=== PATIENT | male | born 1965 | race Hispanic/Latino ===

== ENCOUNTER 2016-03-29 19:54 | Emergency (ER) | payer SELFPAY ==
[~2016-03-29] VITALS: Ht 175.3 cm; Wt 81.8 kg
[2016-03-29 19:58] VITALS: BP 126/72; PULSE 75; RESP 20; O2SAT 98
--- NOTE | 2016-03-29 20:22 | ED.REPORT ---
HPI-Rash / Abscess Date of Service Mar 29, 2016 ED Provider: Boom Taveras MD Patient is a 50-year-old male who presents to the ED complaining of an area of swelling on the left neck which began 3 days ago. Patient reports mild pain on the lump, which has grown larger every day since onset. He denies any fever and also has several small abscesses on his scalp which have been present for a few weeks. He was on antibiotics about a month ago. 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 Arrived By: Walk-in Onset Occurred: 3 days ago Symptom Duration: Since onset Location: : Neck Severity: Current: Mild Recent Healthcare: No recent doctor visit, No recent hospitalization Similar Sx Previous: No Past Medical History Past Medical History borderline diabetic Past Surgical History childhood hernia repair Smoking History Never Smoker Social History Alcohol Use: Denies alcohol use Ambulatory Status Independent Review of Systems Constitutional: Denies: Fever Skin: Reports Rash (eczema bilateral elbows, small abscesses on scalp), Reports Swelling (left neck lump) Complete sys rev & neg: except as marked. Physical Exam Initial Vital Signs Vital Signs (First) Date Time Temp Pulse Resp B/P Pulse Ox O2 Delivery O2 Flow Rate FiO2 03/29/16 19:58 37.1 75 20 126/72 98 Initial VS: Reviewed, Vital signs normal Cardiovascular: Regular rate & rhythm, Heart sounds normal, Intact distal pulses Abdomen / GI: Soft, Non-tender, No guarding, No rebound, No distention Back: No CVA tenderness Extremities: Vascular intact, Neuro intact, No swelling, No tenderness Neurologic: Alert, Oriented, Nonfocal Psychiatric: Mood/affect normal, Behavior normal, Normal thought content General/Constitutional: Awake, Alert, No acute distress, Well appearing, Well developed, Cooperative, Not toxic appearing Color / Condition: Positive: Lesion present... small abscess that self drained and resolved no clinical signs of cellulitis large 3 cm erythematous, swollen, indurated tissue in the left neck that is possibly a lymph node ENT: Atraumatic, Airway patent, Mucous membranes moist, Pharynx NL no intraoral abnormalities Respiratory / Chest: Atraumatic, Breath sounds NL, Breath sounds = bilat, No respiratory distress, No rales, No rhonchi, No wheezing no airway abnormalities Interpretation & Diagnostics Lab Results Interpretation Result Diagram: 03/29/16203903/29/162039 Test 03/29/16 20:40 White Blood Count 11.2th/mm3 (3.8-10.1) Red Blood Count 5.16mil/mm3 (4.40-5.80) Hemoglobin 15.2g/dL (13.8-17.2) Hematocrit 42.8% (41.0-50.0) Mean Corpuscular Volume 82.9fL (81-100) Mean Corpuscular Hemoglobin 29.5pg (27.0-35.0) Mean Corpuscular Hemoglobin Concent 35.5% (32.0-37.0) Red Cell Distribution Width 13.2% (12.3-15.4) Platelet Count 265bil/L (150-400) Neutrophils (%) (Auto) 66.2% (40-74) Lymphocytes (%) (Auto) 21.2% (14-46) Monocytes (%) (Auto) 8.2% (4-12) Eosinophils (%) (Auto) 3.7% (0-5) Basophils (%) (Auto) 0.5% (0-3) Sodium Level 135mEq/L (134-144) Potassium Level 3.7mEq/L (3.5-5.2) Chloride Level 96mEq/L (97-108) Carbon Dioxide Level 26mmol/L (18-29) Blood Urea Nitrogen 14mg/dL (6-24) Creatinine 0.84mg/dL (0.76-1.27) Estimat Glomerular Filtration Rate 102mL/min (>59) Glucose Level 149mg/dL (60-99) Calcium Level 9.0mg/dL (8.5-10.1) Total Bilirubin 0.4mg/dL (0.0-1.2) Aspartate Amino Transf (AST/SGOT) 18U/L (0-50) Alanine Aminotransferase (ALT/SGPT) 19U/L (0-44) Alkaline Phosphatase 101U/L (25-150) Total Protein 7.4g/dL (6.4-8.4) Albumin 4.0g/dL (3.4-5.0) Lab Results Interpretation: CBC mild leukocytosis CMP normal Re-Eval/Medical Decision Med Decision/Clinical Course This is a 50-year-old [place]-speaking male presents to the murmurs or swelling of 4 days increasing swelling redness and pain on the left side of his neck. Denies fevers chills, he denies rash or injury elsewhere, has no prior history of MRSA. He is afebrile and nontoxic. However on exam he has got a couple of areas of alopecia with had recent stress scalp process, including what looks to be a previously and spontaneously drained small cutaneous abscess on the left posterior scalp line. There are no current signs of infection, but this would be an area that is likely drained to the posterior lymph chain. On exam of the neck there is a markedly swollen approximate 4 x 4 centimeter indurated area that he is in the direct line of the posterior cervical chain, and I do not appreciate dorene fluctuance that would be strongly suggestive cutaneous abscess, but there is some surrounding erythema of early cellulitis. There is no airway compromise. Patient's oropharyngeal exam appears normal with no pathology identified. There is no evidence of Harley's angina or anterior/submandibular involvement. Rest of the patient's exam is normal. Blood work reveals mild leukocytosis, CT indicates a probable lymphadenitis/ inflammatory process with no discrete abscess. The radiologist also recommends ENT follow-up, and potential repeat evaluation. The patient received IV clindamycin cover staph strep and MRSA as most likely etiologies for cervical adenitis in the setting of a scalp wound. The culture at present. He also received IV dexamethasone. He is being discharged on a course of oral clindamycin, oral dexamethasone, when necessary hydrocodone, and a probiotic. A referal for follow up with ENT provided. Return precautions reviewed. Source of Hx: Old records Re-Evaluation/Progress : Time of Eval: 22:18 Patient Status: Mild relief Re-Evaluation/Progress Note: Pt rechecked. Informed pt of diagnosis of cervical lymphadentitis and plan for treatment. Pt understands and agrees with plan. F/U and RTER warnings given. All questions addressed. Differential Diagnosis: Negative: Abscess, Anorectal abscess, Bartholin's abscess, Gangrene, Henoch-Schonlein purpura, Herpes zoster, Osteomyelitis, [place] mt spotted fever Counseled Regarding: Diagnosis, Lab results, Need for follow-up, When/why to return to ED Discharge & Departure Impression: Primary Impression: Cervical lymphadenitis Disposition: Home Discharge Condition All VS Reviewed: Yes Condition: Stable Additional Instructions: 1. No abscess was appreciated on CT scan - it does appear to be an infected lymph gland. 2. Take the antibiotic clindamycin 300mg FOUR times a day for 10 days. Take all 10 days of antibiotics. 3. Take dexamethasone 10mg (1/2 of syringe - empty into some juice - and drink ) tomorrow. Take the remaining 10mg (remaining 1/2 of syringe) on Friday. This medication also helps reduce the swelling. 4. If needed for pain take hydrocodone/APAP 5/325 1 tab up to every 4-6 horus for pain. NOTE: This medication contains a narcotic and causes drowsiness. No driving for at least 4-6 hours after taking. 5. It usually takes 1-2 days antibiotics before symptoms start to improve, and it will likely take a week or 2 before the swelling fully resolves. 6. Do recommend that she follow up with the ear nose and throat physician for recheck in about [address] Desai's office tomorrow to schedule an appointment. 7. If you need a primary care physician, follow-up with Dr. Cordero. 8. I do recommend taking a "pro-biotic" as well for another 10 days after finishing the antibiotics. This is to help replace the healthy bacteria in the intestines that are accidentally removed by the antibiotic. 1. no hay absceso se apreci en la exploracin del CT - parece ser un ganglio linftico infectado. 2. craig el antibitica clindamicina 300mg cuatro veces al da nathan 10 vázquez. Craig todos los 10 vázquez de antibiticos. 3. Urania dexametasona 10mg (1/2 jeringa - vaco en algunos jugo - y la bebida) ma samy. Urania la restantes 10mg (1/2 jeringa restante) el deonte. Halima medicamento tambin ayuda a reducir la hinchazn. 4. Si es necesario para la lengeta de hydrocodone/APAP 5/325 1 dolor craig hasta cada 4-6 horus para el dolor. Nota: Halima medicamento contiene un narc maria del carmen y causa somnolencia. No se puede conducir nathan al menos 4-6 horas despu s de craig. 5. tarda generalmente antibiticos 1-2 vázquez antes de que los sntomas comienzan a mejorar, y es probable que tardar cheri semana o 2 antes de que la inflamacin se resuelve completamente. 6. recomienda que siga con el mdico de odo nariz y garganta para revisin en 2 semanas. Llamar a Oficina de Dr. Lloyd new para programar cheri sidra. 7. Si usted necesita a un mdico de atencin primaria, seguimiento con el Dr. Cordero. 8. recomiendo craig un "pro-biotic" as fiorella para otros 10 vázquez despus de terminar los antibiticos. [place] es para ayudar a reemplazar las bacterias sanas en los intestinos que se eliminan accidentalmente por el antibitico. Scribe Attestation Portion of this note were transcribed by Jayme Wright. I, Dr. Taveras, personally performed the history, physical exam, and medical decision-making: I reviewed and confirmed the accuracy for the information in the transcribed note. Signed by: jus Mason, 03/29/16 [id number] Boom Taveras MD Mar 29, 2016 20:22 JAYME WRIGHT Mar 29, 2016 20:35
[2016-03-29] MEDS ORDERED: Clindamycin Inj 900 MG in IV Premix 1 EACH IV ONE (20:40)
[2016-03-29] MEDS ORDERED: Dexamethasone 10 mg/mL Inj IVPUSH ONE (20:40)
[2016-03-29 20:50] LABS: BASOPHILS % (AUTO) 0.5 % (0-3); EOSINOPHILS % (AUTO) 3.7 % (0-5); MONOCYTES % (AUTO) 8.2 % (4-12); Mean Corpuscular Hemoglobin 29.5 pg (27.0-35.0); Mean Corpuscular Volume 82.9 fL (81-100); NEUTROPHILS % (AUTO) 66.2 % (40-74); Platelet Count 265 bil/L (150-400)
[2016-03-29] MEDS ORDERED: _HYDROcodone/APAP 5-325 mg Tablet PO PRN (21:20)
[2016-03-29] MEDS ORDERED: _Clindamycin 150 mg Capsule PO SCH (21:30)
--- NOTE | 2016-03-29 21:49 | DRSVH ---
PROCEDURE: CT NECK SOFT TISSUES WITH CONTRAST ([id number]) INDICATIONS: L neck mass TECHNIQUE: After the administration of intravenous contrast, 3.0 mm axial sections acquired from the sella to th e aortic arch. Additional oblique axial 3.0 mm sections acquired through the pharynx. 3 mm thick co ambrose reformats were generated. For radiation dose reduction, the following was used: automated exp osure control. A fiducial marker was placed over the left neck mass. COMPARISON: None. FINDINGS: Image quality: Excellent. Lymph nodes: There are multiple mildly prominent bilateral level II and level III cervical lymph node s, measuring less than 10 mm short axis. Vessels: Visualized vasculature appears patent. Neck spaces: The nasopharynx is within normal limits. There is multifocal nodular thickening of the right and left aspects of the tongue base, with multiple regions of nodular thickening ranging in siz e from 5 mm-13 mm protruding into the vallecula. There is suboptimal visualization of the more superi or aspect of the oropharynx, which is effaced. The vocal cords, false vocal cords, pyriform sinuses, and epiglottis are within normal limits. Within the left upper neck, at the posterior and medial aspe ct of the superior left sternocleidomastoid muscle, there is an ill-defined region of severe fat stra nding, spanning roughly 32 mm. This is in the region of the clavicle abnormality as denoted by the fi ducial marker. Glands: The parotid and submandibular glands appear normal. Thyroid gland is within normal limits. Miscellaneous: Visualized brain and orbits appear normal. Lung apices appear clear. Superficial so ft tissues appear normal. Bones: No suspicious bony lesions. Left maxillary sinus retention cyst is present. IMPRESSION: 1. Focal inflammatory versus infectious process within the left superior neck as described above. Mul tiple reactive cervical lymph nodes. No loculated fluid collection to indicate abscess. 2. Nodular thickening of the tongue base; direct visualization is recommended. 3. Followup imaging is recommended to exclude the less likely possibility of underlying neoplasm. Dictated by: Alicja Max M.D. on 03/29/2016 at 21:42 Approved by: Alicja Max M.D. on 03/29/2016 at 21:47
[2016-03-29] MEDS ORDERED: Dexamethasone 20 mg/2 mL Oral Solution PO ONE (22:05)
[2016-03-29] MEDS ORDERED: LACT1CAP65 PO (22:12)
[2016-03-29 23:52] VITALS: BP 126/72; PULSE 75; RESP 20; O2SAT 98
== END 2016-03-29 23:53 | disposition home or self-care (01) ==
LOC: SED 19:54
DX: L04.0 Acute lymphadenitis of face, head and neck (principal)
CPT/HCPCS: 36415; 70491; 80053; 85025; 96365; 96375; 99284; J1100; Q9967